=== PATIENT | female | born 1975 | race Caucasian/White ===

== ENCOUNTER 2021-05-18 12:10 | Outpatient (CLI) | payer BC ==
[2021-05-18] MEDS ORDERED: LOSA50TA14 PO (12:28)
[2021-05-18 13:37] LABS: ALANINE AMINOTRANSFERASE 25 U/L (12-78); ALBUMIN 3.6 g/dL (3.4-5.0); ANION GAP 5 mmol/L (5-15); CALCIUM 8.9 mg/dL (8.5-10.1); CHLORIDE 105 mmol/L (98-107); CREATININE 0.83 mg/dL (0.55-1.02)
[2021-05-18 13:40] LABS: ALKALINE PHOSPHATASE 118 U/L (45-117); BILIRUBIN,TOTAL 0.6 mg/dL (0.2-1.0); TOTAL PROTEIN 7.7 g/dL (6.4-8.2)
== END 2021-05-18 23:59 | disposition home or self-care (01) ==
LOC: EDSEX 12:10 → STAR 12:10
PROVIDERS: ATTEND Internal Medicine Geriatric Medicine
DX: Z01.818 Encounter for other preprocedural examination (principal); K31.89 Other diseases of stomach and duodenum
CPT/HCPCS: 36415; 80053

== ENCOUNTER 2021-05-24 12:28 | Day surgery (SDC) | payer BC ==
[~2021-05-24] VITALS: Ht 180.3 cm; Wt 94.6 kg
[~2021-05-24 12:28] MED LIST: LOSA50TA14 PO
[2021-05-24 13:07] VITALS: BP 144/93
[2021-05-24] MEDS ORDERED: CHLORHEXIDINE 15 ML UDC ONE (13:10)
[2021-05-24] MEDS ORDERED: CHLORHEXIDINE 15 ML UDC PO ONE (13:30)
[2021-05-24] MEDS ORDERED: FENTANYL PF 100 MCG/2ML IV PRN (13:30)
[2021-05-24] MEDS ORDERED: ONDANSETRON 2MG/ML, 2ML IVPush PRN (13:30)
[2021-05-24] MEDS ORDERED: LACTATED RINGERS 1,000 ML IV SCH (13:30)
[2021-05-24] MEDS ORDERED: PROPOFOL 10 MG/ML, 20ML ONE ×3 (14:09→14:25)
== END 2021-05-24 15:25 | disposition home or self-care (01) ==
LOC: EDSEX → OUT 12:28
PROVIDERS: ATTEND Internal Medicine
DX: K31.89 Other diseases of stomach and duodenum (principal); D17.79 Benign lipomatous neoplasm of other sites; I10 Essential (primary) hypertension; Z79.899 Other long term (current) drug therapy
CPT/HCPCS: 43259; J2704; J7120